=== PATIENT | female | born 2000 | race Caucasian/White ===

== ENCOUNTER 2021-08-06 19:58 | Emergency (ER) | payer MEDICAID, OTHER ==
[2021-08-06] MEDS ORDERED: LIDOCAINE 1%-EPI 1:100000 20 ML MDV SUBQ STA (20:26)
--- NOTE | 2021-08-06 20:27 | ED Physician Documentation ---
PD HPI HEENT - Stated complaint Stated Complaint: OBJECT IN LIP - Chief complaint Chief Complaint: Heent - History obtained from History obtained from: Patient (She was replacing a piercing in her upper lip, the post goes in the inside and then lost the post within her upper lip. This was about an hour ago.) Review of Systems Constitutional: reports: Reviewed and negative Nose: reports: Reviewed and negative Throat: reports: Reviewed and negative Cardiac: reports: Reviewed and negative PD PAST MEDICAL HISTORY - Past Medical History Derm: Eczema, Other - Past Surgical History Past Surgical History: No - Allergies Allergies/Adverse Reactions: Allergies Allergy/AdvReac Type Severity Reaction Status Date / Time amoxicillin Allergy Hives Verified 08/06/21 20:08 - Social History Does the pt smoke?: No Smoking Status: Never smoker Does the pt drink ETOH?: No Does the pt have substance abuse?: No - Immunizations Immunizations are current?: Yes - POLST Patient has POLST: No PD ED PE NORMAL - Vitals Vital signs reviewed: Yes - General General: Alert and oriented X 3, No acute distress - HEENT HEENT: Other (There is a palpable foreign body within the mid upper lip in the midline.) - Neuro Neuro: Alert and oriented X 3, Normal speech Results - Vitals Vitals: Vital Signs - 24 hr 08/06/21 08/06/21 20:05 23:52 Temperature 36.4 C L 36.4 C L Heart Rate 120 H 88 Respiratory 18 20 Rate Blood Pressure 149/91 H 128/77 O2 Saturation 97 98 Oxygen O2 Source Room air PD MEDICAL DECISION MAKING - ED course ED course: 21yo female with sensation of retained metallic FB r/t piercing in upper lip. After informed verbal consent upper lip anesthestized with 1%lido with epi via introral approach and wound exlpored including a very small introral incision and no FB noted. Subsequently same incision closed with a single 5-0 vicryl suture. Sent for XR showing no metallic FB. Departure - Departure Disposition: 01 Home, Self Care Clinical Impression: Swollen lip Condition: Good Record reviewed to determine appropriate education?: Yes Instructions: ED Laceration Mouth Comments: Soap and water is fine for wound care. Return as needed for new or worse symptoms. Discharge Date/Time: 08/06/21 23:51
--- NOTE | 2021-08-06 21:50 | XRAY Report ---
PROCEDURE: Mandible Bilat INDICATIONS: poss fb upper lip TECHNIQUE: 4 views of the mandible were acquired. COMPARISON: None FINDINGS: Bones: No fractures or dislocations. No suspicious bony lesions. Soft tissues: Visualized sinuses appear clear. No suspicious soft tissue densities. IMPRESSION: No fracture or foreign body seen over the mandible, facial area. Reviewed by: Mathew Brenner MD on 08/06/2021 9:49 PM PDT Approved by: Mathew Brenner MD on 08/06/2021 9:49 PM PDT Station ID: [id number]
[2021-08-06 23:53] VITALS: BP 128/77
== END 2021-08-06 23:51 | disposition home or self-care (01) ==
LOC: ED 19:58
DX: L92.3 Foreign body granuloma of the skin and subcutaneous tissue (principal); Z18.89 Other specified retained foreign body fragments
CPT/HCPCS: 10120